=== PATIENT | male | born 1970 | race Caucasian/White ===

== ENCOUNTER 2017-07-08 03:54 | Inpatient (IN) | payer OTHER, MEDICAID ==
[~2017-07-08] VITALS: Ht 172.7 cm; Wt 112.0 kg
[~2017-07-08 03:54] MED LIST: ALPR-229; ASPI81CH43 PO; CARI-316; GLUC-202; HOME 02; HYDR-2595; INHALERS; OME40GT; OXYC325T14; RISP1TAB60; [UNRECOGNIZED DRUG - CODE]
[2017-07-08 04:32] LABS: Basophils # (auto) 0 uL; Basophils % (auto) 0.5 % (0.0-2.0); CONDITION Y; Eosinophils # (auto) 0.2 uL; Eosinophils % (auto) 2.1 % (0.0-7.0); Hematocrit 46.9 % (41.0-53.0); Hemoglobin 16.2 g/dL (13.5-17.5); Lymphocytes # (auto) 2.3 uL; Lymphocytes % (auto) 31.6 % (10.0-50.0); Mean Corpuscular Hgb Conc. 34.6 g/dL (32.0-36.0); Mean Corpuscular Volume 95.3 fL (80.0-100.0); Mean Platelet Volume 8.4 fL (7.4-10.4); Monocytes # (auto) 0.6 uL; Monocytes % (auto) 7.9 % (0.0-12.0); Neutrophils # (auto) 4.2 uL; Neutrophils % (auto) 57.9 % (37.0-80.0); Platelet Count (auto) 286 10^3/uL (140-450); Red Cell Distribution Width 14.3 % (11.6-16.0); White Blood Cell 7.3 10^3/uL (4.4-10.8)
[2017-07-08 04:50] LABS: INR 0.98 (0.9-1.15); Partial Thromboplastin Time 25.9 sec (22.64-33.71); Prothrombin Time 10.7 sec (9.37-12.3)
[2017-07-08 04:51] LABS: Albumin 3.5 g/dL (3.4-5.0); Anion Gap 10 (5-15); Aspartate Aminotransferase 15 U/L (15-37); BUN/Creatinine Ratio 13.1; Blood Urea Nitrogen 11 mg/dL (7-18); Calcium 8.5 mg/dL (8.5-10.1); Carbon Dioxide 22 mmol/L (21-32); Chloride 111 mmol/L (98-107); GFR African American 127 mL/min; GFR Non-African American 105 mL/min; Glucose 82 mg/dL (74-106); Magnesium 2.6 mg/dL (1.6-2.6); Potassium 3.9 mmol/L (3.5-5.1); Sodium 143 mmol/L (136-145)
[2017-07-08 04:56] LABS: Alkaline Phosphatase 110 U/L (45-117); Bilirubin, Total 0.4 mg/dL (0.2-1.0); Total Protein 7.1 g/dL (6.4-8.2)
[2017-07-08 04:59] LABS: B-Type Natriuretic Peptide 9.82 pg/mL (0-100)
[2017-07-08] MEDS ORDERED: LORazepam 0.5 MG TAB PO ONE (05:00)
[2017-07-08] MEDS ORDERED: MORPHINE SULFATE 4 MG/ML SYRG IV ONE ×2 (05:00→07:30)
[2017-07-08] MEDS ORDERED: ASPirin 81 mg TAB PO ONE (05:00)
[2017-07-08] MEDS ORDERED: ONDANSETRON HCL 4 MG/2 ML VIAL IV ONE ×2 (05:00→07:30)
[2017-07-08] MEDS ORDERED: NITROGLYCERIN 0.2MG/HR TOPICAL PATCH TD ONE (05:00)
[2017-07-08 05:10] LABS: Temperature: 22.9 C (20.0-25.0)
[2017-07-08] MEDS ORDERED: NITROGLYCERIN 0.4 MG SL TAB SL PRN ×2 (09:00)
[2017-07-08] MEDS ORDERED: LORazepam 0.5 MG TAB PO PRN (09:00)
[2017-07-08] MEDS ORDERED: ALUM & MAG HYDROX-SIMETH LIQ(MAALOX) 30 ML PO ONE (09:00)
[2017-07-08] MEDS ORDERED: MORPHINE SULF INJ 2 MG/ML SYRINGE 1ML IV PRN ×2 (09:00)
[2017-07-08] MEDS ORDERED: ONDANSETRON HCL 4 MG/2 ML VIAL IV PRN (09:00)
[2017-07-08] MEDS ORDERED: CARISOPRODOL 350 MG TAB PO PRN (09:00)
[2017-07-08] MEDS ORDERED: MORPHINE SULF INJ 2 MG/ML SYRINGE 1ML IV ONE (09:00)
[2017-07-08] MEDS ORDERED: ACETAMINOPHEN 325 MG TAB PO PRN (09:00)
[2017-07-08 09:08] LABS: Urine Bilirubin Negative (Negative); Urine Blood Negative /uL (Negative); Urine Color Yellow (Yellow); Urine Glucose Normal (Normal); Urine Ketone Negative (Negative); Urine Mucus FEW (None Seen); Urine Nitrite Negative (Negative); Urine RBC <1 /hpf (0 - 3); Urine pH 7.5 (5.0-8.0)
[2017-07-08] MEDS ORDERED: DEXTROSE (50%) 50ML SYRG IV PRN (09:15)
[2017-07-08] MEDS: lamoTRIgine 25 MG TAB PO SCH ×2 (09:47→21:55)
[2017-07-08] MEDS: ENALAPRIL MALEATE 2.5 MG TAB PO SCH ×2 (09:48→21:55)
[2017-07-08] MEDS: CARVEDILOL 3.125 MG TAB PO SCH ×2 (09:48→21:54)
[2017-07-08] MEDS ORDERED: PANTOPRAZOLE 40 MG TAB PO SCH (10:00)
[2017-07-08] MEDS ORDERED: DOCUSATE SOD 100 MG CAP PO SCH (10:00)
[2017-07-08] MEDS ORDERED: CLOPIDOGREL BISULFATE 75 MG TAB PO SCH (10:00)
[2017-07-08] MEDS ORDERED: risperiDONE 1 MG TAB PO SCH (10:00)
[2017-07-08] MEDS: ACCU-CHEK COMFORT CURVE STRIP VI SCH ×3 (11:30→21:56)
[2017-07-08] MEDS: InsuLIN REG 1unit/0.01ml Soln (100units/ml) SC SCH ×3 (11:30→21:56)
[2017-07-08 11:39] VITALS: BP 101/67
[2017-07-08] MEDS: ALBUTEROL SULF 2.5 MG/0.5ML(0.5%) NEB SOLN NEB SCH ×2 (12:21→18:00)
[2017-07-08] MEDS: SODIUM CHLOR 0.9% PF (SALINE LOCK) 10ML VIAL IV SCH ×2 (14:00→21:54)
[2017-07-08 15:33] VITALS: BP 101/67
[2017-07-08] MEDS: OXYCODONE W/ ACETAMINOPHEN 5/325MG TABLET PO PRN ×2 (15:35→21:50)
[2017-07-08 17:00] VITALS: BP 90/30
[2017-07-08] MEDS ORDERED: ASPirin 81 mg TAB PO SCH (18:00)
[2017-07-08 22:00] VITALS: BP 85/59
[2017-07-08] MEDS ORDERED: ATORVASTATIN 20 MG TAB PO SCH (22:00)
[2017-07-08] MEDS: ZOLPIDEM TARTRATE 5 MG TAB PO PRN ×2 (22:44→23:00)
[2017-07-09] MEDS: ALBUTEROL SULF 2.5 MG/0.5ML(0.5%) NEB SOLN NEB SCH
== END 2017-07-09 04:15 | disposition left against medical advice (07) | DRG 313 ==
LOC: ER 03:54 → TELE 03:55 → TELE-E-ADS 10:55 → TELE-WESTW 14:20
PROVIDERS: ADMIT Internal Medicine; ATTEND Internal Medicine
DX: R07.89 Other chest pain (principal); I25.2 Old myocardial infarction; I50.42 Chronic combined systolic (congestive) and diastolic (congestive) heart failure; I25.119 Atherosclerotic heart disease of native coronary artery with unspecified angina pectoris; J44.9 Chronic obstructive pulmonary disease, unspecified; Z53.21 Procedure and treatment not carried out due to patient leaving prior to being seen by health care provider; J45.909 Unspecified asthma, uncomplicated; F32.9 Major depressive disorder, single episode, unspecified; K21.9 Gastro-esophageal reflux disease without esophagitis; E11.9 Type 2 diabetes mellitus without complications; G89.29 Other chronic pain; M54.9 Dorsalgia, unspecified; Z82.0 Family history of epilepsy and other diseases of the nervous system; Z87.891 Personal history of nicotine dependence; Z98.84 Bariatric surgery status; Z87.11 Personal history of peptic ulcer disease
CPT/HCPCS: 36415; 71010; 80053; 80307; 81001; 82962; 83036; 83735; 83880; 84443; 84484; 85025; 85610; 85730; 93005; 93306; 94640; 94761; 96374; 96375; 96376; J2405

== ENCOUNTER 2017-10-08 06:20 | Emergency (ER) | payer OTHER, MEDICAID ==
[~2017-10-08] VITALS: Ht 175.3 cm; Wt 113.4 kg
[~2017-10-08 06:20] MED LIST changes: -HOME 02; -INHALERS
[2017-10-08 07:22] LABS: Urine RBC None Seen /hpf (0 - 3)
[2017-10-08 07:37] LABS: Urine Bilirubin Negative (Negative); Urine Blood Negative /uL (Negative); Urine Color Yellow (Yellow); Urine Glucose Normal (Normal); Urine Ketone Negative (Negative); Urine Mucus FEW (None Seen); Urine Nitrite Negative (Negative); Urine Squamous Epithelial Cell FEW /hpf (<5); Urine Urobilinogen Normal (Negative); Urine pH 6.5 (5.0-8.0)
[2017-10-08] MEDS ORDERED: SODIUM CHLORIDE 0.9% 1,000 ML IV ONE (09:51)
[2017-10-08] MEDS ORDERED: ONDANSETRON HCL 4 MG/2 ML VIAL IV ONE (10:00)
[2017-10-08] MEDS ORDERED: KETOROLAC TROMETH 30 MG/ML 1ML VIAL IV ONE (10:00)
[2017-10-08 10:37] LABS: Basophils # (auto) 0 uL; Basophils % (auto) 0.4 % (0.0-2.0); Eosinophils # (auto) 0.2 uL; Eosinophils % (auto) 2.4 % (0.0-7.0); Hematocrit 42.7 % (41.0-53.0); Hemoglobin 14.6 g/dL (13.5-17.5); Lymphocytes # (auto) 1.9 uL; Lymphocytes % (auto) 23.7 % (10.0-50.0); Mean Corpuscular Hemoglobin 33.1 pg (28.0-32.0); Mean Corpuscular Hgb Conc. 34.1 g/dL (32.0-36.0); Mean Corpuscular Volume 96.9 fL (80.0-100.0); Mean Platelet Volume 8.1 fL (6.9-10.8); Monocytes # (auto) 0.6 uL; Monocytes % (auto) 7.7 % (0.0-12.0); Neutrophils # (auto) 5.2 uL; Neutrophils % (auto) 65.8 % (37.0-80.0); Platelet Count (auto) 237 10^3/uL (140-450); Red Cell Distribution Width 13.6 % (11.8-14.3); White Blood Cell 7.9 10^3/uL (4.4-10.8)
[2017-10-08 10:56] LABS: INR 0.93 (0.9-1.15); Partial Thromboplastin Time 25.4 sec (22.64-33.71); Prothrombin Time 10.1 sec (9.37-12.3)
[2017-10-08 10:58] LABS: Albumin 3.5 g/dL (3.4-5.0); Alkaline Phosphatase 92 U/L (45-117); Anion Gap 8 (5-15); Aspartate Aminotransferase 13 U/L (15-37); Bilirubin, Total 0.5 mg/dL (0.2-1.0); Blood Urea Nitrogen 18 mg/dL (7-18); Calcium 8.7 mg/dL (8.5-10.1); Carbon Dioxide 27 mmol/L (21-32); Chloride 107 mmol/L (98-107); GFR African American 117 mL/min; GFR Non-African American 97 mL/min; Glucose 94 mg/dL (74-106); Magnesium 2.5 mg/dL (1.6-2.6); Sodium 142 mmol/L (136-145)
[2017-10-08] MEDS ORDERED: DONNATAL 5ml ORAL Elix (BELLADONNA ALK-PHENOBARB) PO ONE (11:15)
[2017-10-08] MEDS ORDERED: LIDOCAINE VISCOUS 2% 15ML UD PO ONE (11:15)
[2017-10-08] MEDS ORDERED: ALUM & MAG HYDROX-SIMETH LIQ(MAALOX) 30 ML PO ONE (11:15)
[2017-10-08 12:24] VITALS: BP 120/70
== END 2017-10-08 12:42 | disposition home or self-care (01) ==
LOC: ER 06:22
DX: K29.70 Gastritis, unspecified, without bleeding (principal); I50.9 Heart failure, unspecified; J44.9 Chronic obstructive pulmonary disease, unspecified; E11.9 Type 2 diabetes mellitus without complications; K21.9 Gastro-esophageal reflux disease without esophagitis; I25.2 Old myocardial infarction; Z87.11 Personal history of peptic ulcer disease; Z79.899 Other long term (current) drug therapy; Z98.890 Other specified postprocedural states; Z98.84 Bariatric surgery status
CPT/HCPCS: 36415; 71020; 74176; 80053; 81001; 83735; 84484; 85025; 85610; 85730; 93005; 96361; 96374; 96375; 99285; J1885; J2405; J7030

== ENCOUNTER 2018-06-18 04:21 | Emergency (ER) | payer MEDICAID, MEDICARE, OTHER ==
[~2018-06-18] VITALS: Ht 175.3 cm; Wt 113.4 kg
[2018-06-18 04:33] VITALS: BP 116/71
== END 2018-06-18 06:44 | disposition left against medical advice (07) ==
LOC: ER 04:36
DX: R07.89 Other chest pain (principal); Z53.21 Procedure and treatment not carried out due to patient leaving prior to being seen by health care provider
CPT/HCPCS: 71045; 93005

== ENCOUNTER 2021-04-10 13:37 | Inpatient (IN) | payer SELFPAY ==
[~2021-04-10] VITALS: Ht 175.3 cm; Wt 109.6 kg
[~2021-04-10 13:37] MED LIST changes: -ALPR-229; +ALPR2TAB6; -CARI-316; +CARI350T22; +RISP1TAB33; -RISP1TAB60
[2021-04-10] MEDS ORDERED: ONDANSETRON HCL 4 MG/2 ML VIAL IV ONE ×2 (13:45→15:45)
[2021-04-10] MEDS ORDERED: ASPirin 81 mg TAB PO ONE (13:45)
[2021-04-10] MEDS ORDERED: MORPHINE SULFATE 4 MG/ML SYR/VIAL IV ONE ×2 (13:45→15:45)
[2021-04-10 14:13] LABS: Basophils # (auto) 0.1 10 ^3/uL (0-0.2); Basophils % (auto) 0.6 % (0.0-2.0); Eosinophils # (auto) 0.2 10 ^3/uL (0-0.8); Eosinophils % (auto) 1.7 % (0.0-7.0); Hematocrit 44.2 % (41.0-53.0); Hemoglobin 15.5 g/dL (13.5-17.5); Lymphocytes # (auto) 1.3 10 ^3/uL (0.4-5.4); Lymphocytes % (auto) 13.8 % (10.0-50.0); Mean Corpuscular Volume 94.2 fL (80.0-100.0); Monocytes # (auto) 0.9 10 ^3/uL (0-1.3); Monocytes % (auto) 9.3 % (0.0-12.0); Neutrophils % (auto) 74.6 % (37.0-80.0); Nucleated Red Blood Cells % 0.1 %; Platelet Count (auto) 311 10^3/uL (140-450); Red Blood Cells 4.69 10^6/uL (4.5-5.90); Red Cell Distribution Width 13.6 % (11.8-14.3); White Blood Cell 9.4 10^3/uL (4.4-10.8)
[2021-04-10 14:28] LABS: INR 0.97 (0.9-1.15); Partial Thromboplastin Time 24.6 sec (23.0-31.2)
[2021-04-10 14:29] LABS: Alanine Aminotransferase 23 U/L (16-61); Albumin 3.2 g/dL (3.4-5.0); Anion Gap 10 (5-15); Blood Alcohol < 3.0 mg/dL (0-5); Blood Urea Nitrogen 13 mg/dL (7-18); Calcium 8.3 mg/dL (8.5-10.1); Carbon Dioxide 24 mmol/L (21-32); Chloride 108 mmol/L (98-107); Glucose 83 mg/dL (74-106); Lipase 155 U/L (73-393); Potassium 3.8 mmol/L (3.5-5.1); Sodium 142 mmol/L (136-145)
[2021-04-10 14:34] LABS: Alkaline Phosphatase 98 U/L (45-117); Aspartate Aminotransferase 14 U/L (15-37); BUN/Creatinine Ratio 11.1; Bilirubin, Total 0.6 mg/dL (0.2-1.0); GFR African American 85 mL/min; GFR Non-African American 70 mL/min
[2021-04-10] MEDS ORDERED: ALBUTEROL SULF 2.5 MG/0.5ML(0.5%) NEB SOLN NEB PRN (16:15)
[2021-04-10] MEDS ORDERED: NITROGLYCERIN 0.4 MG SL TAB SL PRN (16:15)
[2021-04-10] MEDS ORDERED: ACETAMINOPHEN 500 MG TAB PO PRN (16:15)
[2021-04-10] MEDS ORDERED: ONDANSETRON HCL 4 MG/2 ML VIAL IV PRN (16:15)
[2021-04-10] MEDS ORDERED: MORPHINE SULF INJ 2 MG/ML SYRINGE 1ML IV PRN (16:15)
[2021-04-10] MEDS ORDERED: IPRATROPIUM BROM 0.5 MG/2.5ML INH SOL NEB PRN (16:15)
[2021-04-10 16:51] LABS: Cholesterol 168 mg/dL (< 200); HDL Cholesterol 54 mg/dL (40-59); LDL Cholesterol 96 mg/dL (< 100); Triglycerides 224 mg/dL (< 150)
[2021-04-10 17:10] VITALS: BP 138/79
[2021-04-10 17:22] LABS: Urine Bacteria NONE SEEN /hpf (None Seen); Urine Blood Negative /uL (Negative); Urine Mucus MANY (None Seen); Urine Specific Gravity 1.026 (1.001-1.035); Urine WBC 2 /hpf (0 - 3)
[2021-04-10 20:20] VITALS: BP 124/79
[2021-04-10] MEDS: MORPHINE SULF INJ 2 MG/ML SYRINGE 1ML IV PRN (20:24)
[2021-04-10] MEDS: HYDROcodone-ACET 5/325MG TAB PO PRN (20:39)
[2021-04-10] MEDS ORDERED: LORazepam 2MG/ML-1ML VIAL IV PRN (21:45)
[2021-04-10 22:25] VITALS: BP 124/79
[2021-04-10] MEDS: ATORVASTATIN 20 MG TAB PO SCH (22:58)
[2021-04-11] MEDS: MORPHINE SULF INJ 2 MG/ML SYRINGE 1ML IV PRN ×5 (00:17→22:18)
[2021-04-11] MEDS ORDERED: TEMAZEPAM 15 MG CAP PO ONE (00:30)
[2021-04-11] MEDS: HYDROcodone-ACET 5/325MG TAB PO PRN (05:02)
[2021-04-11 05:20] VITALS: BP 119/70
[2021-04-11] MEDS ORDERED: PERCOT PO (06:45)
[2021-04-11] MEDS ORDERED: ASPI325T4 PO (06:45)
[2021-04-11] MEDS ORDERED: HYDR-4072 PO (06:45)
[2021-04-11 09:00] VITALS: BP 128/86
[2021-04-11] MEDS ORDERED: PANTOPRAZOLE 40 MG TAB PO SCH (10:00)
[2021-04-11] MEDS: ASPirin 81 mg TAB PO SCH (10:36)
[2021-04-11] MEDS: THIAMINE HCL 100 MG TAB PO SCH (10:37)
[2021-04-11] MEDS: MULTIPLE VITAMIN TAB PO SCH (10:37)
[2021-04-11] MEDS: SUCRALFATE 1 GM/10 ML ORAL SUSP PO SCH ×3 (11:38→22:17)
[2021-04-11] MEDS ORDERED: HYDROmorphone HCL 2 MG/ML VL IV ONE (12:45)
[2021-04-11 13:00] VITALS: BP 116/77
[2021-04-11 13:23] LABS: Amphetamine Screen, Urine NEGATIVE (NEGATIVE); Barbiturate Scree,Urine NEGATIVE (NEGATIVE); Benzodiazephine Screen, Urine NEGATIVE (NEGATIVE); Cannabinoid Screen, Urine NEGATIVE (NEGATIVE); Cocaine Screen, Urine NEGATIVE (NEGATIVE); Phencyclidine Screen, Urine NEGATIVE (NEGATIVE)
[2021-04-11 13:31] LABS: Opiate Scree,Urine POSITIVE (NEGATIVE)
[2021-04-11] MEDS ORDERED: chlordiazePOXIDE HCL 5 MG CAP PO PRN (14:15)
[2021-04-11 17:00] VITALS: BP 123/76
[2021-04-11 22:00] VITALS: BP 112/68
[2021-04-11] MEDS: ATORVASTATIN 20 MG TAB PO SCH (22:17)
[2021-04-11] MEDS: PANTOPRAZOLE 40 MG TAB PO SCH (22:18)
[2021-04-12] MEDS: MORPHINE SULF INJ 2 MG/ML SYRINGE 1ML IV PRN ×2 (03:53→08:58)
[2021-04-12 05:00] VITALS: BP 119/82
[2021-04-12] MEDS: SUCRALFATE 1 GM/10 ML ORAL SUSP PO SCH ×2 (06:21→11:30)
[2021-04-12] MEDS: ASPirin 81 mg TAB PO SCH (08:59)
[2021-04-12] MEDS: THIAMINE HCL 100 MG TAB PO SCH (08:59)
[2021-04-12] MEDS: MULTIPLE VITAMIN TAB PO SCH (08:59)
[2021-04-12 09:00] VITALS: BP 114/68
[2021-04-12] MEDS: PANTOPRAZOLE 40 MG TAB PO SCH (09:00)
[2021-04-12] MEDS ORDERED: THIA100T10 PO (10:38)
[2021-04-12] MEDS ORDERED: ATOR20TA50 PO (10:38)
[2021-04-12] MEDS ORDERED: ASPI1CHW15 PO (10:38)
[2021-04-12] MEDS ORDERED: MULTTAB99 PO (10:38)
[2021-04-12] MEDS ORDERED: SUCR1TAB22 OR (10:38)
== END 2021-04-12 11:55 | disposition home or self-care (01) | DRG 69 ==
LOC: ER 13:37 → TELE 16:15 → TELE-CENTR 20:16
PROVIDERS: ADMIT Nurse Practitioner Acute Care; ATTEND Internal Medicine
DX: G45.9 Transient cerebral ischemic attack, unspecified (principal); E66.01 Morbid (severe) obesity due to excess calories; Z20.822 Contact with and (suspected) exposure to COVID-19; F10.20 Alcohol dependence, uncomplicated; F17.210 Nicotine dependence, cigarettes, uncomplicated; I50.9 Heart failure, unspecified; I11.0 Hypertensive heart disease with heart failure; E11.9 Type 2 diabetes mellitus without complications; J44.9 Chronic obstructive pulmonary disease, unspecified; G47.30 Sleep apnea, unspecified; Z90.49 Acquired absence of other specified parts of digestive tract; Z80.6 Family history of leukemia; Z82.0 Family history of epilepsy and other diseases of the nervous system; Z80.9 Family history of malignant neoplasm, unspecified; Z79.899 Other long term (current) drug therapy; Z79.82 Long term (current) use of aspirin; Z88.4 Allergy status to anesthetic agent
CPT/HCPCS: 36415; 70450; 70551; 74176; 76705; 80053; 80061; 80307; 80320; 81001; 83690; 84484; 85025; 85610; 85730; 87426; 93005; 93306; 93886; 96374; 96375; 96376; G0378; J2405

== ENCOUNTER 2021-05-15 08:27 | Inpatient (IN) | payer SELFPAY ==
[~2021-05-15] VITALS: Ht 175.3 cm; Wt 104.2 kg
[~2021-05-15 08:27] MED LIST changes: -ALPR2TAB6; +ASPI1CHW15 PO; -ASPI81CH43 PO; +ATOR20TA50 PO; -CARI350T22; -GLUC-202; -HYDR-2595; +MULTTAB99 PO; -OME40GT; -OXYC325T14; +PERCOT PO; -RISP1TAB33; +SUCR1TAB22 OR; +THIA100T10 PO; -[UNRECOGNIZED DRUG - CODE]
[2021-05-15] MEDS ORDERED: SODIUM CHLORIDE 0.9% 1,000 ML IV ONE (08:45)
[2021-05-15] MEDS ORDERED: PANTOPRAZOLE 40 MG/10 ML VIAL INJ IV ONE (08:45)
[2021-05-15 08:54] LABS: Basophils # (auto) 0.1 10 ^3/uL (0-0.2); Basophils % (auto) 0.7 % (0.0-2.0); Eosinophils # (auto) 0.1 10 ^3/uL (0-0.8); Eosinophils % (auto) 1.2 % (0.0-7.0); Hematocrit 39.6 % (41.0-53.0); Hemoglobin 13.6 g/dL (13.5-17.5); Lymphocytes # (auto) 1.2 10 ^3/uL (0.4-5.4); Lymphocytes % (auto) 12.9 % (10.0-50.0); Mean Corpuscular Hemoglobin 32.7 pg (28.0-32.0); Mean Corpuscular Hgb Conc. 34.3 g/dL (32.0-36.0); Mean Corpuscular Volume 95.4 fL (80.0-100.0); Monocytes # (auto) 0.5 10 ^3/uL (0-1.3); Monocytes % (auto) 5.7 % (0.0-12.0); Neutrophils # (auto) 7.1 10 ^3/uL (1.6-8.6); Neutrophils % (auto) 79.5 % (37.0-80.0); Nucleated Red Blood Cells % 0.1 %; Platelet Count (auto) 227 10^3/uL (140-450); Red Blood Cells 4.15 10^6/uL (4.5-5.90); Red Cell Distribution Width 14.3 % (11.8-14.3); White Blood Cell 8.9 10^3/uL (4.4-10.8)
[2021-05-15 09:12] LABS: Alanine Aminotransferase 22 U/L (16-61); Albumin 3.2 g/dL (3.4-5.0); Anion Gap 7 (5-15); Aspartate Aminotransferase 12 U/L (15-37); BUN/Creatinine Ratio 26.5; Blood Urea Nitrogen 22 mg/dL (7-18); Calcium 8.4 mg/dL (8.5-10.1); Carbon Dioxide 26 mmol/L (21-32); Chloride 108 mmol/L (98-107); GFR African American 127 mL/min; GFR Non-African American 105 mL/min; Glucose 116 mg/dL (74-106); Lipase 97 U/L (73-393); Potassium 3.7 mmol/L (3.5-5.1); Sodium 141 mmol/L (136-145)
[2021-05-15 09:17] LABS: Alkaline Phosphatase 82 U/L (45-117); Bilirubin, Total 0.7 mg/dL (0.2-1.0); Total Protein 6.9 g/dL (6.4-8.2)
[2021-05-15] MEDS ORDERED: MORPHINE SULFATE 4 MG/ML SYR/VIAL IV ONE (09:30)
[2021-05-15] MEDS ORDERED: ONDANSETRON HCL 4 MG/2 ML VIAL IV ONE (09:30)
[2021-05-15] MEDS ORDERED: MORPHINE SULF INJ 2 MG/ML SYRINGE 1ML IV PRN ×2 (11:45)
[2021-05-15] MEDS ORDERED: NITROGLYCERIN 0.4 MG SL TAB SL PRN (11:45)
[2021-05-15] MEDS ORDERED: ONDANSETRON HCL 4 MG/2 ML VIAL IV PRN (11:45)
[2021-05-15] MEDS: AZITHROMYCIN 250 MG TAB PO SCH (12:16)
[2021-05-15 13:55] LABS: INR 1.01 (0.9-1.15)
[2021-05-15] MEDS: HYDROmorphone HCL 2 MG/ML VL IV PRN ×2 (16:12→20:39)
[2021-05-15 17:28] VITALS: BP 113/62
[2021-05-15] MEDS: SUCRALFATE 1 GM TAB PO SCH ×2 (18:18→21:12)
[2021-05-15 19:08] LABS: Urine Bacteria FEW /hpf (None Seen); Urine Blood Negative /uL (Negative); Urine Mucus FEW (None Seen); Urine Specific Gravity 1.029 (1.001-1.035); Urine WBC 3 /hpf (0 - 3)
[2021-05-15 19:21] LABS: Alcohol, Urine < 3.0 mg/dL (0-10); Amphetamine Screen, Urine NEGATIVE (NEGATIVE); Barbiturate Scree,Urine NEGATIVE (NEGATIVE); Benzodiazephine Screen, Urine NEGATIVE (NEGATIVE); Cannabinoid Screen, Urine NEGATIVE (NEGATIVE); Cocaine Screen, Urine NEGATIVE (NEGATIVE); Phencyclidine Screen, Urine NEGATIVE (NEGATIVE)
[2021-05-15 19:29] LABS: Opiate Scree,Urine POSITIVE (NEGATIVE)
[2021-05-15 21:00] VITALS: BP 109/63
[2021-05-15] MEDS: PANTOPRAZOLE 40 MG TAB PO SCH (21:14)
[2021-05-15] MEDS ORDERED: ATORVASTATIN 20 MG TAB PO SCH (22:00)
[2021-05-16] MEDS: HYDROmorphone HCL 2 MG/ML VL IV PRN ×2 (02:30→06:17)
[2021-05-16 05:00] VITALS: BP 102/58
[2021-05-16] MEDS: SUCRALFATE 1 GM TAB PO SCH ×2 (06:16→10:58)
[2021-05-16 06:43] LABS: Basophils # (auto) 0.1 10 ^3/uL (0-0.2); Basophils % (auto) 0.8 % (0.0-2.0); Eosinophils # (auto) 0.3 10 ^3/uL (0-0.8); Hematocrit 34.2 % (41.0-53.0); Lymphocytes # (auto) 1.6 10 ^3/uL (0.4-5.4); Lymphocytes % (auto) 24.6 % (10.0-50.0); Mean Corpuscular Hemoglobin 33.4 pg (28.0-32.0); Mean Corpuscular Hgb Conc. 35.2 g/dL (32.0-36.0); Mean Corpuscular Volume 94.9 fL (80.0-100.0); Monocytes # (auto) 0.6 10 ^3/uL (0-1.3); Monocytes % (auto) 9.4 % (0.0-12.0); Neutrophils % (auto) 61.2 % (37.0-80.0); Platelet Count (auto) 212 10^3/uL (140-450); Red Cell Distribution Width 14.5 % (11.8-14.3); White Blood Cell 6.5 10^3/uL (4.4-10.8)
[2021-05-16] MEDS ORDERED: SODIUM CHLORIDE LOCK 10 ML ONE (08:41)
[2021-05-16] MEDS ORDERED: LIDOCAINE VISCOUS 2% 15ML UD ONE (08:41)
[2021-05-16] MEDS ORDERED: diphenhdrAMINE HCL 50 MG/1 ML VL ONE (08:42)
[2021-05-16] MEDS ORDERED: EPINEPHrine HCL 1 MG/10 ML SYRG ONE (08:47)
[2021-05-16] MEDS: MIDAZOLAM HCL 5 MG/ML-1ML VIAL ONE ×2 (08:58→09:01)
[2021-05-16] MEDS: fentaNYL CITRATE 100 MCG/2 ML VL ONE ×2 (08:58→09:01)
[2021-05-16 09:00] VITALS: BP 100/53
[2021-05-16 10:00] VITALS: BP 103/60
[2021-05-16] MEDS: AZITHROMYCIN 250 MG TAB PO SCH (10:00)
[2021-05-16] MEDS: PANTOPRAZOLE 40 MG TAB PO SCH (10:00)
[2021-05-16] MEDS ORDERED: MULTIPLE VITAMIN TAB PO SCH (10:00)
[2021-05-16] MEDS ORDERED: THIAMINE HCL 100 MG TAB PO SCH (10:00)
== END 2021-05-16 12:22 | disposition left against medical advice (07) | DRG 377 ==
LOC: ER 08:27 → TELE-EAST 11:44
PROVIDERS: ADMIT Nurse Practitioner Acute Care; ATTEND Internal Medicine
PROC: 0DJ08ZZ Inspection of Upper Intestinal Tract, Via Natural or Artificial Opening Endoscopic (ICD-10-PCS; principal; 2021-05-16 08:55)
DX: K25.4 Chronic or unspecified gastric ulcer with hemorrhage (principal); J18.9 Pneumonia, unspecified organism; J44.0 Chronic obstructive pulmonary disease with (acute) lower respiratory infection; E66.9 Obesity, unspecified; E11.9 Type 2 diabetes mellitus without complications; F17.210 Nicotine dependence, cigarettes, uncomplicated; I11.0 Hypertensive heart disease with heart failure; Z53.29 Procedure and treatment not carried out because of patient's decision for other reasons; S20.219A Contusion of unspecified front wall of thorax, initial encounter; F10.10 Alcohol abuse, uncomplicated; X58.XXXA Exposure to other specified factors, initial encounter; Z20.822 Contact with and (suspected) exposure to COVID-19; I50.9 Heart failure, unspecified; K28.4 Chronic or unspecified gastrojejunal ulcer with hemorrhage; Z85.6 Personal history of leukemia; Z98.84 Bariatric surgery status; Z82.0 Family history of epilepsy and other diseases of the nervous system; Z90.49 Acquired absence of other specified parts of digestive tract; Y93.89 Activity, other specified; Y92.89 Other specified places as the place of occurrence of the external cause; Y99.8 Other external cause status
CPT/HCPCS: 36415; 43235; 70450; 71250; 74176; 80053; 80307; 81001; 83690; 84484; 85025; 85049; 85610; 86850; 86900; 86901; 87081; 87426; 96361; 96374; 96375; C9113; G0378; J2250; J2405

== ENCOUNTER 2023-09-17 18:11 | Emergency (ER) | payer MEDICARE, OTHER ==
[~2023-09-17] VITALS: Ht 172.7 cm; Wt 77.2 kg
[~2023-09-17 18:11] MED LIST changes: +ASPI-736 PO; -ASPI1CHW15 PO
[2023-09-17 18:27] VITALS: O2SAT 98
[2023-09-17] MEDS ORDERED: MORPHINE SULFATE 4 MG/ML SYR/VIAL IV ONE ×2 (19:00→21:00)
[2023-09-17] MEDS ORDERED: SODIUM CHLORIDE 0.9% 1,000 ML IVB ONE (19:00)
[2023-09-17] MEDS ORDERED: PANTOPRAZOLE 40 MG/10 ML VIAL INJ IV ONE (19:00)
[2023-09-17] MEDS ORDERED: PROCHLORPERAZINE EDISYLATE 5 MG/ML 2ML VIAL IV ONE (19:00)
[2023-09-17 19:32] VITALS: BP 112/59; PULSE 110; RESP 18
[2023-09-17 19:47] LABS: Eosinophils # (auto) 0.1 10 ^3/uL (0-0.8); Eosinophils % (auto) 1.4 % (0.0-7.0); Hemoglobin 11.9 g/dL (13.5-17.5); Monocytes # (auto) 0.6 10 ^3/uL (0-1.3); Nucleated Red Blood Cells % 0.1 %
[2023-09-17 19:49] LABS: Basophils # (auto) 0 10 ^3/uL (0-0.2); Basophils % (auto) 0.5 % (0.0-2.0); Lymphocytes # (auto) 1.4 10 ^3/uL (0.4-5.4); Lymphocytes % (auto) 15.6 % (10.0-50.0); Mean Corpuscular Hemoglobin 24.2 pg (28.0-32.0); Mean Corpuscular Hgb Conc. 31.4 g/dL (32.0-36.0); Mean Corpuscular Volume 77.1 fL (80.0-100.0); Monocytes % (auto) 6.7 % (0.0-12.0); Neutrophils # (auto) 6.9 10 ^3/uL (1.6-8.6); Neutrophils % (auto) 75.8 % (37.0-80.0); Red Blood Cells 4.94 10^6/uL (4.5-5.90); Red Cell Distribution Width 18.1 % (11.8-14.3); White Blood Cell 9.1 10^3/uL (4.4-10.8)
[2023-09-17 19:58] LABS: Alanine Aminotransferase 11 U/L (7-40); Albumin 4.6 g/dL (3.2-4.8); Alkaline Phosphatase 98 U/L (46-116); Anion Gap 11 (5-15); Aspartate Aminotransferase 11 U/L (13-40); BUN/Creatinine Ratio 15.5 (10.0-20.0); Blood Urea Nitrogen 16 mg/dL (9-23); Carbon Dioxide 28 mmol/L (20-30); Chloride 104 mmol/L (98-107); Glucose 108 mg/dL (74-106); Lipase 58 U/L (12-53); Potassium 3.9 mmol/L (3.5-5.1); Sodium 143 mmol/L (136-145)
[2023-09-17 19:59] LABS: Bilirubin, Total 1.4 mg/dL (0.2-1.0); Total Protein 7.8 g/dL (5.7-8.2)
[2023-09-17] MEDS ORDERED: METOCLOPRAMIDE HCL 5MG/ml INJ 2ml VIAL IV ONE (21:00)
[2023-09-17] MEDS ORDERED: ONDANSETRON HCL 4 MG/2 ML VIAL IV PRN (21:45)
[2023-09-17] MEDS ORDERED: HYDROcodone-ACET 5/325MG TAB PO PRN (21:45)
[2023-09-17 22:27] LABS: INR 1.08 (0.9-1.15); Partial Thromboplastin Time 25.1 SEC (24.5-34.5); Prothrombin Time 11.3 sec (9.3-11.8)
[2023-09-18] MEDS ORDERED: PANTOPRAZOLE 40 MG TAB PO SCH (10:00)
== END 2023-09-17 23:38 | disposition left against medical advice (07) ==
LOC: ER 18:11
DX: R10.84 Generalized abdominal pain (principal); R11.10 Vomiting, unspecified; K31.84 Gastroparesis; F17.210 Nicotine dependence, cigarettes, uncomplicated; J44.9 Chronic obstructive pulmonary disease, unspecified; Z79.899 Other long term (current) drug therapy; Z90.49 Acquired absence of other specified parts of digestive tract; Z90.89 Acquired absence of other organs; Z98.890 Other specified postprocedural states
CPT/HCPCS: 36415; 76705; 80053; 82962; 83690; 85025; 85610; 85730; 93005; 96361; 96374; 96375; 99285; C9113; J0780; J2270; J7030